=== PATIENT | male | born 1980 | race Caucasian/White ===

== ENCOUNTER 2020-11-20 10:05 | Inpatient (IN) | payer SELFPAY ==
[~2020-11-20] VITALS: Ht 195.6 cm; Wt 132.0 kg
[2020-11-20] MEDS ORDERED: DESYREL 50MG50 MG PO (10:39)
[2020-11-20] MEDS ORDERED: PRINZIDE 12.5 M1 TA1 PO (10:39)
[2020-11-20 11:50] LABS: BASO # 0.1 (0.0-0.2); BASO % 0.8 % (0.0-2.0); EOS # 0.2 (0.0-0.7); EOS % 1.6 % (0-4.0); GRAN # 10.4 (1.4-6.5); GRAN % 73.6 % (42.2-75.2); HEMATOCRIT 41.5 % (42.0-52.0); HEMOGLOBIN 14.2 g/dl (13.5-18.0); LYMPH # 1.8 (1.2-3.4); LYMPH % 12.9 % (20.0-51.0); MEAN CELL VOLUME 94 fl (80.0-100.0); MEAN CORPUSCULAR HEMOGLOBIN 32 pg (27.0-31.0); MEAN CORPUSCULAR HGB CONC 34 g/dl (33.0-37.0); MEAN PLATELET VOLUME 8.9 fl (7.4-10.4); MONO # 1.4 (0.1-0.6); MONO % 10.2 % (1.7-9.3); PLATELET COUNT 260 K/mm3 (130-400); RED BLOOD COUNT 4.44 M/mm3 (4.20-5.60); REDCELL DISTRIBUTION WIDTH-CV 11.9 % (11.5-14.5)
[2020-11-20 12:05] LABS: ALBUMIN 4.3 gm/dL (3.5-5.0); BILIRUBIN,TOTAL 0.8 mg/dL (0.0-1.0); C-REACTIVE PROTEIN 6.5 mg/dL (0.0-0.9); CALCIUM 9.3 mg/dL (8.4-10.2); CREATININE, serum 0.67 (0.66-1.25); TOTAL PROTEIN 7.7 gm/dL (6.4-8.2)
--- NOTE | 2020-11-20 17:00 | NUR ---
Pt arrived to room 309 at this time. He is A/O x4. His breathing is even and unlabored on 2L O2 via NC. Pt denies SOB at this time. Does have a dry cough. No pain at this time. POC discussed with patient, pt instructed to call for assistance when out of bed. IVF started to [facility]. No needs at this time. Call light within reach.
[2020-11-20 19:35] VITALS: BP 140/75; PULSE 100; TEMP 97.9
--- NOTE | 2020-11-20 23:12 | NUR ---
Patient states he is feeling much better now that he has the oxygen on. Denies any lightheadedness or feeling like he's going to have a syncopal episode. Patient is on his Ipad at this time and has no requests or concerns.
[2020-11-21] VITALS (7 sets, daily range): BP systolic 129–140; BP diastolic 72–103; PULSE 89–105; TEMP 97.4–98.1
[2020-11-21 08:13] LABS: BASO # 0.1 (0.0-0.2); BASO % 0.8 % (0.0-2.0); EOS # 0.3 (0.0-0.7); EOS % 2.5 % (0-4.0); GRAN # 6.4 (1.4-6.5); GRAN % 64.4 % (42.2-75.2); HEMATOCRIT 41.4 % (42.0-52.0); HEMOGLOBIN 13.6 g/dl (13.5-18.0); LYMPH % 20.6 % (20.0-51.0); MEAN CELL VOLUME 98 fl (80.0-100.0); MEAN CORPUSCULAR HEMOGLOBIN 32 pg (27.0-31.0); MEAN CORPUSCULAR HGB CONC 33 g/dl (33.0-37.0); MEAN PLATELET VOLUME 8.7 fl (7.4-10.4); MONO # 1.1 (0.1-0.6); MONO % 10.6 % (1.7-9.3); PLATELET COUNT 245 K/mm3 (130-400); RED BLOOD COUNT 4.24 M/mm3 (4.20-5.60); REDCELL DISTRIBUTION WIDTH-CV 12.1 % (11.5-14.5)
[2020-11-21 08:25] LABS: CALCIUM 8.7 mg/dL (8.4-10.2); CREATININE, serum 0.75 (0.66-1.25); MAGNESIUM 2.2 mg/dL (1.6-2.3); POTASSIUM 3.4 mmol/L (3.4-5.0)
--- NOTE | 2020-11-21 09:16 | NUR ---
Assessment complete. Patient sitting up in bed, awake and alert, eating breakfast at this time. Denies pain or discomfort. Reports a hacky cough when talking or deep breathing. States he has not been dizzy or light headed since yesterday. IV site is CD&I, minimal pain at site due to location but no other issues. IVF continue to infuse with no issues. Patient denies other needs at this time. Call light is in reach.
--- NOTE | 2020-11-21 11:33 | NUR ---
SW called patient to complete intake. Patient provides that he lives with his fijose Spann [phone] and his foster child in [place], [place]. Patient provides that he does not utilize any DME and is currently independent with ADL's. Patient provides that his PCP is Dr. Alebrt, obtains medications from [facility] and is able to afford his medications at this time. Patient states that he does not have DPOA-HC at this time and does not wish to appoint anyone. Patient states that his plan is to return back to his home in [facility] on discharge and has not concerns with doing so. SW will continue to follow.
--- NOTE | 2020-11-21 17:05 | NUR ---
Patient has had an uneventful shift. He is now independent in the room as he has no episodes of dizziness or unsteadiness. Gait is steady, he is doing well. No complaints of pain or discomfort were expressed. IVF continue to run. No other needs were expressed at this time. Call light is in reach.
[2020-11-22 03:55] VITALS: BP 129/90; PULSE 88; TEMP 97.9
[2020-11-22 08:26] VITALS: BP 140/80; PULSE 88; TEMP 98.4
--- NOTE | 2020-11-22 09:05 | NUR ---
Pr awake and alert upon entry to room, in bed. No C/O pain at this time. Talkative and appropriate. Shift assessments complete, left Pt call light in reach, bed in lowest position.
[2020-11-22] MEDS ORDERED: RT Albuterol HFA MDI IH (11:26)
[2020-11-22] MEDS ORDERED: MONODOX100 PO (11:26)
[2020-11-22] MEDS ORDERED: PROAIR HFA0.09 MG/AC IH (11:27)
[2020-11-22] MEDS ORDERED: CODITUSSIN AC473 ML PO (11:27)
[2020-11-22] MEDS ORDERED: TYLENOL 325MG325 MG PO (11:27)
[2020-11-22 11:46] VITALS: BP 128/84; PULSE 96; TEMP 97.6
--- NOTE | 2020-11-22 13:44 | NUR ---
Pt discharged to home, discussed discharge packet with Pt, answered questions. Escorted Pt to entrance, Pt left with friend via private transportation.
== END 2020-11-22 13:40 | disposition home or self-care (01) | DRG 871 ==
LOC: COL.ER 10:05 → MEDICAL 15:15
PROVIDERS: Nurse Practitioner; ADMIT Internal Medicine
DX: A41.9 Sepsis, unspecified organism (principal); J18.9 Pneumonia, unspecified organism; J96.01 Acute respiratory failure with hypoxia; G47.9 Sleep disorder, unspecified; I10 Essential (primary) hypertension; K76.0 Fatty (change of) liver, not elsewhere classified; Z20.822 Contact with and (suspected) exposure to COVID-19
CPT/HCPCS: OP; 99222-AI; 99232-AI; 99239; A9284; J0696; J1650; J7030; Q9967